=== PATIENT | female | born 1985 | race Hispanic/Latino ===

== ENCOUNTER 2019-03-24 18:25 | Emergency (ER) | payer OTHER ==
[2019-03-24 18:49] VITALS: BP 116/76
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
--- NOTE | 2019-03-24 20:10 | XRay Report ---
Lumbar spine 3 views INDICATION: Low back pain IMPRESSION: No fracture or subluxation identified. Signer Name: Singh Kemp MD Signed: 03/24/2019 8:06 PM Workstation Name: [id number]
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
== END 2019-03-24 22:19 | disposition home or self-care (01) ==
LOC: ED 18:25
DX: M54.5 Low back pain (principal); V89.2XXA Person injured in unspecified motor-vehicle accident, traffic, initial encounter; Y93.89 Activity, other specified; Y92.410 Unspecified street and highway as the place of occurrence of the external cause; Y99.8 Other external cause status
CPT/HCPCS: 72100